=== PATIENT | male | born 1965 | race Caucasian/White ===

== ENCOUNTER 2022-10-14 19:10 | Emergency (ER) | payer OTHER ==
[2022-10-14] VITALS (10 sets, daily range): BP systolic 148–182; BP diastolic 86–102
== END 2022-10-14 21:45 | disposition home or self-care (01) | DRG 605 ==
LOC: ED 19:10
PROC: 0HQFXZZ Repair Right Hand Skin, External Approach (ICD-10-PCS; principal; 2022-10-14)
DX: S61.210A Laceration without foreign body of right index finger without damage to nail, initial encounter (principal); W45.8XXA Other foreign body or object entering through skin, initial encounter